=== PATIENT | male | born 2000 | race African-American/Black ===

== ENCOUNTER 2022-08-07 22:14 | Emergency (ER) | payer BC ==
[~2022-08-07] VITALS: Ht 187.9 cm; Wt 103.0 kg
== END 2022-08-07 23:27 | disposition home or self-care (01) ==
LOC: ED 22:14
DX: S61.214A Laceration without foreign body of right ring finger without damage to nail, initial encounter (principal); S61.216A Laceration without foreign body of right little finger without damage to nail, initial encounter; X58.XXXA Exposure to other specified factors, initial encounter; Y93.89 Activity, other specified; Y92.89 Other specified places as the place of occurrence of the external cause; Y99.8 Other external cause status

== ENCOUNTER 2023-05-18 21:35 | Emergency (ER) | payer BC ==
[~2023-05-18] VITALS: Ht 185.4 cm; Wt 105.7 kg
[2023-05-18] MEDS ORDERED: CEPHALEXIN500 M1 PO (23:19)
== END 2023-05-18 23:25 | disposition home or self-care (01) ==
LOC: ED 21:35
DX: S91.312A Laceration without foreign body, left foot, initial encounter (principal); L03.032 Cellulitis of left toe; W22.09XA Striking against other stationary object, initial encounter; Y93.89 Activity, other specified; Y92.89 Other specified places as the place of occurrence of the external cause; Y99.8 Other external cause status

== ENCOUNTER 2024-06-28 10:00 | Emergency (ER) | payer OTHER ==
[~2024-06-28] VITALS: Wt 110.7 kg
[~2024-06-28 10:00] MED LIST: CEPHALEXIN500 M1 PO
[2024-06-28] MEDS ORDERED: Acetaminophen/Oxycodone 5 MG/325 MG TABLET PO ONE (10:35)
[2024-06-28] MEDS ORDERED: MELOXICAM15 MG PO (11:09)
== END 2024-06-28 11:17 | disposition home or self-care (01) ==
LOC: ED 10:00
DX: M54.50 Low back pain, unspecified (principal); M25.562 Pain in left knee

== ENCOUNTER 2024-08-20 20:08 | Emergency (ER) | payer OTHER ==
[~2024-08-20] VITALS: Ht 190.5 cm; Wt 108.9 kg
[~2024-08-20 20:08] MED LIST changes: +MELOXICAM15 MG PO
[2024-08-20 21:02] LABS: BILIRUBIN Negative (Negative); BLOOD Negative (Negative); CLARITY Clear (Clear); COLOR Dark Yellow (Yellow); GLUCOSE Negative (Negative); KETONE Trace (Negative); LEUKO ESTERASE Negative (Negative); NITRITE Negative (Negative); SPECIFIC GRAVITY 1.025 (1.001-1.030)
[2024-08-20 21:11] LABS: BACTERIA 1+; MUCOUS TRACE
== END 2024-08-20 20:59 | disposition home or self-care (01) ==
LOC: ED 20:08
PROVIDERS: Emergency Medicine
DX: Z20.2 Contact with and (suspected) exposure to infections with a predominantly sexual mode of transmission (principal)

== ENCOUNTER 2024-11-05 12:01 | Emergency (ER) | payer OTHER ==
[~2024-11-05] VITALS: Ht 190.5 cm; Wt 110.7 kg
[2024-11-05] MEDS ORDERED: ALBUTEROL 8 GM INHALER INH ONE (12:25)
[2024-11-05 13:07] LABS: BASO # 0.1 10*3/uL (0.0-0.1); BASO % 0.7 % (0.0-1.0); EOS # 0.4 10*3/uL (0.0-0.4); EOS % 4.2 % (1.0-4.0); HEMATOCRIT 43.6 % (42.0-52.0); MEAN CELL VOLUME 86.3 fl (80.0-94.0); MEAN CORPUSCULAR HGB 28.9 pg (27.0-31.0); MEAN CORPUSCULAR HGB CONC 33.5 g/dl (33.0-37.0); MONO % 11.1 % (3.0-9.0); NEUT # 5.7 10*3/uL (2.3-7.9); NEUT % 65.1 % (47.0-73.0); PLATELET COUNT AUTOMATED 294 10*3/uL (130-400); RED BLOOD COUNT 5.05 10*6/uL (4.50-5.90); RED CELL DISTRI WIDTH 12.4 % (0-14.5); WHITE BLOOD COUNT 8.7 10*3/uL (4.8-10.8)
[2024-11-05 13:28] LABS: ALKALINE PHOSPHATASE 62 U/L (46-116); BUN 10 mg/dl (9-23); CHLORIDE 102 mmol/L (98-107); POTASSIUM 3.9 mmol/L (3.4-5.1); SGPT/ALT 34 U/L (5-49); TOTAL PROTEIN 7.6 gm/dL (6.0-8.0)
[2024-11-05] MEDS ORDERED: AZITHROMYCIN 250 MG TAB PO ONE (13:50)
[2024-11-05] MEDS ORDERED: ZITHROMAX250 MG PO (13:50)
== END 2024-11-05 14:41 | disposition home or self-care (01) ==
LOC: ED 12:01
PROVIDERS: Nurse Practitioner
DX: J18.1 Lobar pneumonia, unspecified organism (principal); Z20.822 Contact with and (suspected) exposure to COVID-19

== ENCOUNTER 2025-02-11 09:13 | Emergency (ER) | payer OTHER ==
[~2025-02-11] VITALS: Ht 190.5 cm; Wt 111.8 kg
[~2025-02-11 09:13] MED LIST changes: +ZITHROMAX250 MG PO
[2025-02-11] MEDS ORDERED: Ondansetron4 MG PO (09:29)
[2025-02-11] MEDS ORDERED: diphenhydrAMINE hydrochloride 50 MG/ML VIAL IV ONE (09:30)
[2025-02-11] MEDS ORDERED: Metoclopramide Hydrochloride 10 MG/2 ML VIAL IV ONE (09:30)
[2025-02-11] MEDS ORDERED: FAMOTIDINE 50 ML IV ONE (09:30)
[2025-02-11] MEDS ORDERED: SODIUM CHLORIDE 0.9% 1,000 ML IV ONE (09:30)
[2025-02-11 09:41] LABS: BASO # 0.1 10*3/uL (0.0-0.1); BASO % 1.0 % (0.0-1.0); EOS # 0.2 10*3/uL (0.0-0.4); EOS % 2.6 % (1.0-4.0); MEAN CELL VOLUME 87.4 fl (80.0-94.0); MEAN CORPUSCULAR HGB 28.6 pg (27.0-31.0); MEAN PLATELET VOLUME 10.4 fl (9.6-12.3); MONO # 0.7 10*3/uL (0.1-1.0); MONO % 9.3 % (3.0-9.0); NEUT # 4.2 10*3/uL (2.3-7.9); NEUT % 52.7 % (47.0-73.0); NUCLEATED RED BLOOD CELL 0.0 % (0.0-0.0); NUCLEATED RED BLOOD CELL 0.0 10*3/uL (0.0-0.0); PLATELET COUNT AUTOMATED 229 10*3/uL (130-400); RED CELL DISTRI WIDTH 13.3 % (0-14.5)
[2025-02-11 10:05] LABS: BUN 8 mg/dl (9-23); SGPT/ALT 16 U/L (5-49)
== END 2025-02-11 10:15 | disposition home or self-care (01) ==
LOC: ED 09:13
PROVIDERS: Emergency Medicine
DX: R11.2 Nausea with vomiting, unspecified (principal)